=== PATIENT | male | born 1950 | race Caucasian/White ===

== ENCOUNTER 2021-09-17 07:53 | Outpatient (REF) | payer SELFPAY ==
--- NOTE | 2021-09-17 11:00 | DI.NM_ITS ---
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 Radiologist Interpretation by: Alida Shankar MD Interpretation Date/Time: 09/18/2021 12:54:37
[2021-09-17] MEDS: Regadenoson 0.4 MG/5 ML SYR IVP (11:58)
== END 2021-09-17 08:13 ==
LOC: DI 07:53
PROVIDERS: Visit Provider Internal Medicine Interventional Cardiology
DX: I21.4 Non-ST elevation (NSTEMI) myocardial infarction (principal)
CPT/HCPCS: 78452; 93017; J2785